=== PATIENT | male | born 1965 | race Caucasian/White ===

== ENCOUNTER 2018-06-01 21:03 | Emergency (ER) | payer OTHER ==
[2018-06-01] MEDS ORDERED: LIDOCAINE 1%/EPINEPHRINE INJ 20 ML VIAL INJ ONE (22:20)
--- NOTE | 2018-06-02 00:08 | ER Document Report ---
HPI - HPI Patient complains to provider of: forehead lac Pain Level: 3 Context: Patient is a 52-year-old male presenting to the emergency department for laceration of his forehead. Patient states he was in the cage of a large tractor vehicle when he hit a bump and hit his forehead on the cage, metal bars. Patient states he did not pass out and has had no vomiting. Patient states he noted blood coming from his forehead and presented to the emergency room. Patient was able to control the bleeding with a bag. Past medical history: Depression Medications: Celexa Allergies: None - CONSTITUTIONAL Constitutional: DENIES: Fever, Chills - NEURO Neurology: REPORTS: Headache - hit in head Past Medical History - General Information source: Patient - Social History Smoking Status: Current Every Day Smoker Chew tobacco use (# tins/day): No Frequency of alcohol use: None Drug Abuse: None Lives with: Family Family History: Reviewed & Not Pertinent Patient has suicidal ideation: No Patient has homicidal ideation: No Renal/ Medical History: Denies: Hx Peritoneal Dialysis Psychiatric Medical History: Reports: Hx Depression Past Surgical History: Reports: Hx Orthopedic Surgery - L shoulder, L hand, Vertical Provider Document - CONSTITUTIONAL Agree With Documented VS: Yes Notes: GENERAL: Alert, interacts well. No acute distress. HEAD: Normocephalic, X shaped laceration to the middle of the forehead with tissue removed from center, with multiple jagged edges. EYES: Pupils equal, round, and reactive to light. Extraocular movements intact. ENT: Oral mucosa moist, tongue midline. Nares patent, no nasal septal hematoma, TM's intact, no hemotympanum NECK: Full range of motion. Supple. Trachea midline. LUNGS: Clear to auscultation bilaterally, no wheezes, rales, or rhonchi. No respiratory distress. HEART: Regular rate and rhythm. No murmur ABDOMEN: Soft, non-tender. Non-distended. Bowel sounds present in all 4 quadrants. EXTREMITIES: Moves all 4 extremities spontaneously. No edema, normal radial and dorsalis pedis pulses bilaterally. No cyanosis. BACK: no cervical, thoracic, lumbar midline tenderness. No saddle anesthesia, normal distal neurovascular exam. NEUROLOGICAL: Alert and oriented x3. Normal speech. cranial nerves II through XII grossly intact PSYCH: Normal affect, normal mood. SKIN: Warm, dry, normal turgor. Course - Re-evaluation Re-evalutation: 06/02/18 00:05 Laceration was able to be sutured the best possible with missing tissue. Multiple jagged edges patient tolerated procedure well. - Vital Signs Vital signs: Temp Pulse Resp BP Pulse Ox 107 H 135/86 H 94 06/01/18 21:07 06/01/18 21:07 06/01/18 21:07 Procedures - Laceration/Wound Repair forehead Wound length (cm): 4 Wound's Depth, Shape: Superficial, Irregular, Other - X shaped Laceration pre-procedure: Sterile PPE donned, Sterile drapes applied, Shur- Clens applied Anesthetic type: 1% Lidocaine w/epi Wound explored: Clean, No foreign body removed Irrigated w/ Saline (mLs): 300 Wound Debrided: Minimal Wound Repaired With: Sutures Suture Size/Type: 6:0, Ethilon Number of Sutures: 6 Post-procedure wound care: Sterile dressing applied Post-procedure NV exam normal: Yes Complications: No Discharge - Discharge Clinical Impression: Laceration Condition: Stable Disposition: HOME, SELF-CARE Instructions: Laceration Care ([facility]), Tetanus Immunization Given ([facility]) Additional Instructions: As we discussed do not get the wound wet for the next 24 hours, after that you may shower like normal, do no submerge the wound. Follow up with Primary Care or back in the ED for suture removal in 5-7 days. Should the wound develop redness or increased swelling or discharge you should return to the ED, these are signs of infection.
[2018-06-02] MEDS ORDERED: DIPH/PERTUSS(ACELL)/TETANUS VAC/PF 0.5 ML SYR (>=10YO) IM ONE (00:10)
[2018-06-02 00:35] VITALS: BP 139/86
== END 2018-06-02 00:34 | disposition home or self-care (01) ==
LOC: ER 21:03
PROC: 0HQ1XZZ Repair Face Skin, External Approach (ICD-10-PCS; principal; 2018-06-01)
DX: S01.81XA Laceration without foreign body of other part of head, initial encounter (principal); W22.09XA Striking against other stationary object, initial encounter; F17.200 Nicotine dependence, unspecified, uncomplicated
CPT/HCPCS: 99283; 90471; 90715; 12013; J3490